=== PATIENT | female | born 1960 | race Caucasian/White ===

== ENCOUNTER → 2019-03-07 | Outpatient (CLI) | payer SELFPAY ==
[2019-03-07 10:18] LABS: Microalbumin:Creatinine Ratio 9.7 mg/g CRE (<30 mg/g CRE)
[2019-03-07 10:20] LABS: ALB/GLOB Ratio 1.1 RATIO (0.9-2.4); AST(SGOT) 32 U/L (15-37); Alanine Aminotransfer ALT/SGPT 43 U/L (13-56); Albumin, Serum 3.7 g/dL (3.2-5.0); Alkaline Phosphatase 65 U/L (45-117); Anion Gap 8 (5-15); BUN 16 mg/dL (7-18); BUN/Creat Ratio 21.4 RATIO (10-20); Calcium,Total 9.1 mg/dL (8.5-10.1); Chloride 104 mmol/L (98-107); Cholesterol 129 mg/dL (200); Creatinine, Serum 0.75 mg/dL (0.55-1.02); EST Glomerular Filtration Rate 84 mL/min (>60); Est Glom Filt Rate - Afr Amer 102 mL/min (>60); Globulin 3.5 g/dL (2.2-4.2); Glucose 135 mg/dL (74-106); High Density Lipoprotein 55 mg/dL; Potassium 4.2 mmol/L (3.5-5.1); Protein, Total 7.2 g/dL (6.4-8.2); Sodium Level 141 mmol/L (136-145); Triglycerides 96 mg/dL; Very Low Density Lipoprotein 19 mg/dL (5-40)
[2019-03-07 10:25] LABS: Hemoglobin A1c 8.9 % (4.2-6.3)
== END | disposition home or self-care (01) ==
PROVIDERS: Family Provider Family Medicine; PCP Family Medicine; Referring Provider Family Medicine; Visit Provider Family Medicine
DX: E11.65 Type 2 diabetes mellitus with hyperglycemia (principal); I10 Essential (primary) hypertension; E78.5 Hyperlipidemia, unspecified
CPT/HCPCS: 36415; 80053; 80061; 82043; 82570; 83036

== ENCOUNTER → 2019-06-06 | Outpatient (CLI) | payer OTHER, SELFPAY ==
[2014-02-25 10:27] VITALS: BMI 35.1
[2019-06-06 09:48] LABS: Hemoglobin A1c 7.9 % (4.2-6.3)
[2019-06-06 09:55] LABS: Microalbumin,Random Urine 9.5 mg/L (NO RANGE EST.); Microalbumin:Creatinine Ratio 11.6 mg/g CRE (<30 mg/g CRE)
[2019-06-06 10:01] LABS: ALB/GLOB Ratio 1.2 RATIO (0.9-2.4); AST(SGOT) 32 U/L (15-37); Alanine Aminotransfer ALT/SGPT 45 U/L (13-56); Albumin, Serum 3.7 g/dL (3.2-5.0); Alkaline Phosphatase 61 U/L (45-117); Anion Gap 8 (5-15); BUN 16 mg/dL (7-18); BUN/Creat Ratio 22.3 RATIO (10-20); Calcium,Total 8.9 mg/dL (8.5-10.1); Chloride 106 mmol/L (98-107); Cholesterol 141 mg/dL (200); Creatinine, Serum 0.72 mg/dL (0.55-1.02); EST Glomerular Filtration Rate 88 mL/min (>60); Est Glom Filt Rate - Afr Amer 107 mL/min (>60); Globulin 3.2 g/dL (2.2-4.2); Glucose 146 mg/dL (74-106); High Density Lipoprotein 52 mg/dL; Potassium 4.2 mmol/L (3.5-5.1); Protein, Total 6.9 g/dL (6.4-8.2); Sodium Level 142 mmol/L (136-145); Triglycerides 105 mg/dL; Very Low Density Lipoprotein 21 mg/dL (5-40)
== END | disposition home or self-care (01) ==
PROVIDERS: Family Provider Family Medicine; PCP Family Medicine; Referring Provider Family Medicine; Visit Provider Family Medicine
DX: E78.5 Hyperlipidemia, unspecified (principal); E11.65 Type 2 diabetes mellitus with hyperglycemia; I10 Essential (primary) hypertension; Z79.4 Long term (current) use of insulin
CPT/HCPCS: 36415; 80053; 80061; 82043; 82570; 83036

== ENCOUNTER → 2019-12-12 08:13 | Outpatient (CLI) | payer OTHER, SELFPAY ==
[2019-12-12 09:59] LABS: Microalbumin,Random Urine 9.2 mg/L (NO RANGE EST.); Microalbumin:Creatinine Ratio 10.7 mg/g CRE (<30 mg/g CRE)
[2019-12-12 10:04] LABS: Anion Gap 6 (5-15); BUN 17 mg/dL (7-18); BUN/Creat Ratio 22.8 RATIO (10-20); Chloride 104 mmol/L (98-107); Cholesterol 125 mg/dL (200); Creatinine, Serum 0.75 mg/dL (0.55-1.02); EST Glomerular Filtration Rate 84 mL/min (>60); Est Glom Filt Rate - Afr Amer 101 mL/min (>60); Glucose 111 mg/dL (74-106); High Density Lipoprotein 54 mg/dL; Potassium 3.8 mmol/L (3.5-5.1); Sodium Level 138 mmol/L (136-145); Triglycerides 115 mg/dL; Very Low Density Lipoprotein 23 mg/dL (5-40)
[2019-12-12 10:07] LABS: Hemoglobin A1c 7.4 % (4.2-6.3)
== END ==
PROVIDERS: PCP Family Medicine; Referring Provider Family Medicine; Visit Provider Family Medicine
DX: E78.5 Hyperlipidemia, unspecified (principal); E11.9 Type 2 diabetes mellitus without complications; Z79.899 Other long term (current) drug therapy
CPT/HCPCS: 36415; 80048; 80061; 82043; 82570; 83036

== ENCOUNTER → 2020-05-19 08:15 | Outpatient (CLI) | payer OTHER, SELFPAY ==
[2014-02-25 10:27] VITALS: BMI 35.1
[2020-05-19 09:23] LABS: ALB/GLOB Ratio 1.1 RATIO (0.9-2.4); AST(SGOT) 30 U/L (15-37); Alanine Aminotransfer ALT/SGPT 41 U/L (13-56); Albumin, Serum 3.7 g/dL (3.2-5.0); Alkaline Phosphatase 57 U/L (45-117); Anion Gap 7 (5-15); BUN 17 mg/dL (7-18); BUN/Creat Ratio 24.4 RATIO (10-20); Calcium,Total 8.8 mg/dL (8.5-10.1); Chloride 104 mmol/L (98-107); Cholesterol 134 mg/dL (200); EST Glomerular Filtration Rate 91 mL/min (>60); Est Glom Filt Rate - Afr Amer 110 mL/min (>60); Globulin 3.3 g/dL (2.2-4.2); Glucose 109 mg/dL (74-106); High Density Lipoprotein 54 mg/dL; Potassium 3.8 mmol/L (3.5-5.1); Sodium Level 140 mmol/L (136-145); Triglycerides 100 mg/dL; Very Low Density Lipoprotein 20 mg/dL (5-40)
[2020-05-19 09:46] LABS: Hemoglobin A1c 7.2 % (3.8-5.6)
== END ==
PROVIDERS: PCP Family Medicine; Referring Provider Family Medicine; Visit Provider Family Medicine
DX: E11.9 Type 2 diabetes mellitus without complications (principal); I10 Essential (primary) hypertension; Z79.4 Long term (current) use of insulin; E78.5 Hyperlipidemia, unspecified
CPT/HCPCS: 36415; 80053; 80061; 83036

== ENCOUNTER 2021-10-05 15:08 | Inpatient (IN) | payer MEDICARE, OTHER, SELFPAY ==
[2021-10-05] VITALS (17 sets, daily range): BP systolic 127–150; BP diastolic 60–78; PULSE 58–70; RESP 16–38; TEMP 36.2–37.3; O2SAT 83–97; BMI 35.4; BMI 35.7
[2021-10-05 16:04] LABS: Absolute Lymphocyte Count 0.58 X10^3/uL (0.83-4.51); Basophil# 0.01 X10^3/uL; Basophil% 0.1 % (0-1); Hematocrit 33.5 % (37-47); Hemoglobin 11.5 g/dL (12.0-15.0); Lymphocyte # 0.58 X10^3/ul (0.83-4.51); Lymphocyte % 7.2 % (19-41); Mean Corp Hgb Conc 34.3 g/dL (32-36); Mean Corpuscular Hgb 28.7 pg (27.0-32.0); Mean Corpuscular Volume 83.5 fL (81-99); Mean Platelet Vol. 10.9 fl (6.2-12.0); Monocyte# 0.37 X10^3/uL; Monocyte% 4.6 % (0-10); NRBC Flagged by Analyzer 0 % (0-5); Neutrophil # 7.04 X10^3/uL (2.7-7.7); Neutrophil % 87.5 % (47-70); POSITIVE DIFFERENTIAL YES; Platelet Count 196 K/mm3 (150-450); RBC Distribution Width CV 13.9 % (11.6-14.6); RBC Distribution Width SD 42.8 fl (35.1-43.9); Red Blood Count 4.01 M/mm3 (4.2-5.4); White Blood Count 8.1 K/mm3 (4.4-11.0)
[2021-10-05 16:05] LABS: Differential Indicated SCAN CRITERIA MET
--- NOTE | 2021-10-05 16:06 | RAD_ITS ---
STUDY: X-RAY CHEST REASON FOR EXAM: Female, 61 years old. SOB TECHNIQUE: Single frontal view of the chest. COMPARISON: None. FINDINGS: Moderate bilateral interstitial infiltrates. There is no demonstrated pleural abnormality. Normal size heart. Normal mediastinum and kendal. Normal visualized pulmonary arteries. Normal visualized aortic arch and descending thoracic aorta. Normal visualized thoracic spine. Normal visualized ribs, clavicles, and shoulders. There is no demonstrated abnormality of the visualized soft tissue structures of the upper abdomen. RAD/Chest 1 View (Portable) IMPRESSION: Moderate bilateral interstitial infiltrates Electronically Signed: Vadim Monroe MD at 16:33 EST , Service support ,
--- NOTE | 2021-10-05 16:06 | ED.VIS.DYS ---
HPI History of Present Illness Chief Complaint: Shortness of Breath Detail of Chief Complaint: Cough shortness of breath with weakness x1 week Informant: patient and family Narrative Narrative: Patient presents to the emergency department with complaint of shortness of breath. Patient was seen by primary care physician's office and noted to have an oxygen saturation in the low 80s. Patient's had a cough and at times bringing up some green to brown sputum. She complains of exertional dyspnea. She has had some body aches and sore throat. She denies Covid exposures. She has not had the Covid vaccine. She denies chest pain. No history of CHF or COPD. PFSH PFS Home Medications atorvastatin 20 mg PO QHS 02/17/14 [History Last Taken Unknown] buspirone 15 mg PO DAILY 02/17/14 [History Last Taken Unknown] fluoxetine 40 mg PO DAILY 02/17/14 [History Last Taken Unknown] glimepiride 4 mg PO DAILY 02/17/14 [History Last Taken Unknown] lisinopril 20 mg PO DAILY 02/17/14 [History Last Taken Unknown] metformin 1,000 mg PO BIDCM 02/17/14 [History Last Taken Unknown] zolpidem 5 mg PO QHS PRN PRN 02/17/14 [History Last Taken Unknown] hydrocodone-acetaminophen 1 tab PO Q4H PRN PRN #20 tablet 02/25/14 [Rx Last Taken Unknown] Allergy/AdvReac Type Severity Reaction Status Date / Time simvastatin [From Zocor] AdvReac Other Verified 10/05/21 15:12 Social History Smoking Status: Former smoker ROS [facility] ED Constitutional Constitutional ED: Reports systems reviewed and no addt'l complaints, except as documented; Denies body ache(s), change in weight or chills Eyes Eyes: Denies acute decrease in peripheral vision, change in vision, double vision or loss of vision ENT ENT ED: Reports none and sore throat; Denies ear pain, lip swelling, loss taste/smell, neck pain or otalgia Cardiovascular Cardiovascular: Reports none; Denies abdominal pain, chest pain with activity, leg edema, lightheadedness, palpitations, rapid heart rate or syncope Respiratory/Chest Respiratory/Chest: Reports none, cough and dyspnea; Denies change in mental status, dry cough, hemoptysis, shortness of breath at rest or shortness of breath with exertion Gastrointestinal Gastrointestinal: Reports none; Denies abdominal pain, change in stool character, diarrhea, hematemesis, hematochezia, melena, rectal bleeding or vomiting Genitourinary Genitourinary ED: Reports none; Denies abdominal discomfort, anuria, dysuria, genital pain or polyuria Musculoskeletal Musculoskeletal: Reports none and myalgias; Denies arthralgias, back pain, difficulty walking, extremity pain or muscle weakness Integumentary Reports none; Denies abscess or rash Neurologic Neurologic: Reports none, headache(s) and weakness; Denies abnormal gait, confusion, focal weakness, frequent falls, loss of vision, numbness, paresthesias, radicular pain or vertigo Psychiatric Psychiatric: Reports systems reviewed and no addt'l complaints, except as documented and none; Denies behavioral changes, confusion, difficulty concentrating, hallucinations, suicidal ideation, tactile hallucinations or visual hallucinations Endocrine Endocrinology: Denies none, cold intolerance, excessive sweating, fatigue or heat intolerance Hematologic/Lymphatic Hematologic/Lymphatic: Reports none; Denies anemia, easy bleeding or easy bruising Allergic/Immunologic Allergic/Immunologic ED: Denies as per HPI, none, lip swelling, mouth swelling, throat swelling, tongue swelling or hives EXAM Physical Exam Const Vital Signs: 10/05/21 15:10 10/05/21 16:22 10/05/21 16:41 Temperature 97.9 F Temperature Source Temporal Pulse Rate 69 Respiratory Rate 18 16 Blood Pressure 150/65 H Blood Pressure Mean 93 Pulse Ox 83 90 95 Oxygen Delivery Method Room Air Nasal Cannula Nasal Cannula Oxygen Flow Rate (L/min) 4 6 Positive well nourished and well developed General Appearance ED: well developed and NAD HEENT Reports TM's clear and moist mucous membranes normocephalic and atraumatic; Negative for trauma or tenderness Tympanic Membrane ED: Yes TM's clear Eyes PERRL and EOMs intact bilaterally General Eye ED: Negative for pale conjunctiva or scleral icterus Neck no lymphadenopathy, supple and no JVD General: Negative for tenderness Chest Wall inspection of chest normal and palpation of chest normal Chest: Negative for tenderness Resp normal respiratory effort and clear to auscultation bilaterally Effort and Inspection: Negative for respiratory distress or pain with movement Auscultation: Negative for rhonchi, wheezes or diminished lung sounds Cardio regular rate, regular rhythm, S1 normal heart sound, S2 normal heart sound and no murmurs Peripheral Pulses: pulses 2+ throughout GI normal to inspection, nondistended, normoactive bowel sounds, soft to palpation, non-tender, non-distended and no masses Back/Spine no CVA tenderness and no thoracic nor lumbar tenderness Extremity normal to inspection Extremity Narrative: +1 edema both lower extremities that is symmetric. General Extremety ED: Yes edema General Extremity: edema Neuro oriented x3, CN's II-XII intact bilaterally, no sensory deficits noted and gait normal Sensorium / Orientation: awake, alert, oriented to person, oriented to place and oriented to time Motor Exam: strength 5/5 throughout and strength abnormal Psych mental status grossly normal Skin no rashes or lesions noted and no wounds MDM MDM MDM Narrative Medical decision making narrative: IV line established on arrival. Patient placed on 6 L nasal cannula O2. Patient was given Decadron 6 mg p.o. Patient positive for Covid and CTA was negative for PE. Patient drops her O2 sat 85% on 6 L with just minimal movement. Patient will be admitted and I will discuss case with hospitalist. Lab Data Attestation: I reviewed the patient's lab results. Labs: Laboratory Results - last 24 hr 10/05/21 10/05/21 10/05/21 15:40 15:40 15:40 WBC 8.1 RBC 4.01 L Hgb 11.5 L Hct 33.5 L MCV 83.5 MCH 28.7 MCHC 34.3 RDW Std Deviation 42.8 RDW Coeff of Yohan 13.9 Plt Count 196 MPV 10.9 Immature Gran % (Auto) 0.600 Neut % (Auto) 87.5 H Lymph % (Auto) 7.2 L [place] % (Auto) 4.6 Eos % (Auto) 0.0 Baso % (Auto) 0.1 Absolute Neuts (auto) 7.0 Absolute Lymphs (auto) 0.58 L Nucleated RBC % 0 Differential Comment SCANNED D-Dimer Quant (PE/DVT) 2.28 H* Sodium 125 L Potassium 3.7 Chloride 93 L Carbon Dioxide 23.0 Anion Gap 9 BUN 23 H Creatinine 0.65 Estim Creat Clear Calc 79.71 Est GFR (MDRD) Af Amer 119 Est GFR (MDRD) Non-Af 98 BUN/Creatinine Ratio 35.5 H Glucose 108 H Calcium 8.7 B-Natriuretic Peptide 10/05/21 15:40 WBC RBC Hgb Hct MCV MCH MCHC RDW Std Deviation RDW Coeff of Yohan Plt Count MPV Immature Gran % (Auto) Neut % (Auto) Lymph % (Auto) [place] % (Auto) Eos % (Auto) Baso % (Auto) Absolute Neuts (auto) Absolute Lymphs (auto) Nucleated RBC % Differential Comment D-Dimer Quant (PE/DVT) Sodium Potassium Chloride Carbon Dioxide Anion Gap BUN Creatinine Estim Creat Clear Calc Est GFR (MDRD) Af Amer Est GFR (MDRD) Non-Af BUN/Creatinine Ratio Glucose Calcium B-Natriuretic Peptide 176.8 H Radiography Diagnostic Testing: Clinical Impression(s) from Imaging Studies Chest X-Ray 10/05/21 16:06 IMPRESSION: Moderate bilateral interstitial infiltrates Electronically Signed: Vadim Monroe MD at 16:33 EST , Service support , Chest CTA 10/05/21 16:45 IMPRESSION: Multifocal groundglass opacities typical for covid 19, other etiologies not excluded. Electronically Signed: Vadim Monroe MD at 18:15 EST , Service support , 1 view chest x-ray obtained interpreted by myself as bilateral infiltrates. Radiology in agreement. Discharge Plan Triage Chief Complaint: Shortness of Breath ED Provider: Erasmo Doss Dx/Rx/DC Orders Clinical Impression: COVID-19, Hypoxemia Prescriptions: No Action buspirone 5 MG tablet 15 mg PO DAILY RF: 0 atorvastatin 20 MG tablet 20 mg PO QHS RF: 0 lisinopril 20 MG tablet 20 mg PO DAILY RF: 0 metformin 1,000 MG tablet 1,000 mg PO BIDCM RF: 0 glimepiride 4 MG tablet 4 mg PO DAILY RF: 0 zolpidem 5 MG tablet 5 mg PO QHS PRN PRN (Reason: Sleep) RF: 0 fluoxetine 20 MG capsule 40 mg PO DAILY RF: 0 hydrocodone-acetaminophen 1 TABLET tablet 1 tab PO Q4H PRN PRN (Reason: Pain) Qty: 20 RF: 0 Primary Care Provider: Sun Morrell Referrals: Sun Morrell MD [Primary Care Provider] - Disposition Disposition: Acute Care Hospital [facility]
[2021-10-05 16:12] LABS: Anion Gap 9 (5-15); BUN 23 mg/dL (7-18); BUN/Creat Ratio 35.5 RATIO (10-20); Calcium,Total 8.7 mg/dL (8.5-10.1); Chloride 93 mmol/L (98-107); Creatinine, Serum 0.65 mg/dL (0.55-1.02); EST Glomerular Filtration Rate 98 mL/min (>60); Est Glom Filt Rate - Afr Amer 119 mL/min (>60); Estimated Creatinine Clearance 79.71 ml/min; Glucose 108 mg/dL (74-106); Potassium 3.7 mmol/L (3.5-5.1); Sodium Level 125 mmol/L (136-145)
[2021-10-05 16:18] LABS: Differential Comment SCANNED
[2021-10-05 16:32] LABS: D-Dimer Quantitative (DVT/PE) 2.28 FEU/ug/m (0.27-0.49)
[2021-10-05 16:41] LABS: BNP,B-Type NATRIURETIC PEPTIDE 176.8 pg/mL (0-100)
--- NOTE | 2021-10-05 16:45 | CT_ITS ---
STUDY: CTA CHEST REASON FOR EXAM: Female, 61 years old. dyspnea, elevated d-dimer RADIATION DOSAGE (If Supplied By Facility): CTDIvol = ( 11.46 ) mGy, DLP = ( 475.86 ) mGycm TECHNIQUE: The examination was performed with the intravenous administration of IV 100mL Isovue-370. Post-processing of the angiographic images was performed, with multiplanar reformation and 3D reconstruction. Individualized dose optimization techniques were used for this CT. COMPARISON: Chest x-ray 10/05/2021 FINDINGS: Normal enhancement of the main pulmonary artery and right and left pulmonary arteries. Normal enhancement of the bilateral peripheral pulmonary arteries. There is no demonstrated pulmonary embolism. Normal thoracic aorta and visualized great vessels. There is no demonstrated aortic dissection. Calcific coronary artery disease. Normal mediastinum. Normal hilar regions. Normal visualized trachea and bronchi. Multifocal bilateral groundglass opacities. Normal pulmonary parenchyma. Normal pleura. Normal chest wall structures. Normal osseous structures. Normal visualized upper abdomen. CT/CTA Chest W/WO Contrast IMPRESSION: Multifocal groundglass opacities typical for covid 19, other etiologies not excluded. Electronically Signed: Vadim Monroe MD at 18:15 EST , Service support ,
[2021-10-05] MEDS: dexAMETHasone 4 MG Tablet 6 MG PO (17:03)
--- NOTE | 2021-10-05 18:20 | PCM.HP.STD ---
HPI - General General Date of Admission: 10/05/21 Date of Service: 10/05/21 Chief Complaint: COVID type symptoms, hypoxic at PCP visit, referred to ED. HPI Narrative The patient is a 61 y/o F w/ PMHx: Obesity, HTN, HLD, Anxiety and Depression, Diabetes mellitus type II who presents to the [facility] ED on 10/05/21 with history of onset COVID type symptoms with body aches, sore throat, mild frontal headaches, nausea, emesis, diarrhea without abdominal cramping, low-grade fevers with no significant chills associated as well as cough and dyspnea progressively worsening x 1 week prompting PCP evaluation on day of presentation with oxygenation noted to be in the 80s prompting referral to the ED for evaluation. Patient denies having been vaccinated against COVID and does note that she has some ill contacts but is unsure if this is Covid. Work-up in the ED included T 97.9, heart rate 69, BP 150/65, respiratory rate 18, initially 83% on room air eventually requiring 6 L nasal cannula to achieve 95% oxygenation, CBC with WC 8.1, hemoglobin 11.5, platelet 196 with lymphopenia, D-dimer 2.28, BMP with sodium 125, chloride 93, BUN/creatinine 23/0.65, glucose 108, BNP 176.8, rapid Covid antigen positive, chest x-ray with moderate bilateral interstitial infiltrates consistent with Covid pneumonia, follow-up CTPA with multifocal ground-glass opacities bilaterally consistent with Covid pneumonia, blood culture x2 pending per ED. In the ED patient ministered Decadron 6 mg p.o. x1. [facility] Medical History (Updated 10/05/21 @ 18:[address] Irina Odonnell MD) Anxiety and depression HLD (hyperlipidemia) HTN (hypertension) Obesity Home Medications atorvastatin 20 mg PO QHS 02/17/14 [History Last Taken Unknown] buspirone 15 mg PO DAILY 02/17/14 [History Last Taken Unknown] fluoxetine 40 mg PO DAILY 02/17/14 [History Last Taken Unknown] glimepiride 4 mg PO DAILY 02/17/14 [History Last Taken Unknown] lisinopril 20 mg PO DAILY 02/17/14 [History Last Taken Unknown] metformin 1,000 mg PO BIDCM 02/17/14 [History Last Taken Unknown] zolpidem 5 mg PO QHS PRN PRN 02/17/14 [History Last Taken Unknown] hydrocodone-acetaminophen 1 tab PO Q4H PRN PRN #20 tablet 02/25/14 [Rx Last Taken Unknown] Allergy/AdvReac Type Severity Reaction Status Date / Time simvastatin [From Zocor] AdvReac Other Verified 10/05/21 15:12 Family History (Updated 10/05/21 @ 18:[address] Irina Odonnell MD) Mother Cancer Hx lymphoma. Father CAD (coronary artery disease) Hx CABG, ASHD Heart disease Surgical History (Updated 10/05/21 @ 18:[address] Irina Odonnell MD) History of hysterectomy Hx of breast surgery S/P dilation and curettage Social History (Updated 10/05/21 @ 18:[address] Irina Odonnell MD) household members: none Smoking Status: Never smoker alcohol intake: never substance use type: does not use ROS ROS Narrative Admission Review of Systems: CONSTITUTIONAL: No weight loss, + fever, weakness or fatigue. HEENT: + Headache. Eyes: No visual loss, blurred vision, double vision or yellow sclerae. Ears, Nose, Throat: No hearing loss, sneezing. SKIN: No rash or itching, lesions, wounds. CARDIOVASCULAR: No chest pain, chest pressure or chest discomfort, palpitations, edema, orthopnea, syncopal events. RESPIRATORY: + shortness of breath, cough, No marked sputum, wheezing, hemoptysis. GASTROINTESTINAL: + anorexia, nausea, vomiting, diarrhea, No abdominal pain, melena, BRBPR. GENITOURINARY: No dysuria, frequency, urgency or retention. NEUROLOGICAL: + headache, No dizziness, syncope, paralysis, ataxia, numbness or tingling in the extremities, focal weakness, change in bowel or bladder control, seizure. MUSCULOSKELETAL: + muscle, back pain, joint pain or stiffness. HEMATOLOGIC: No anemia, bleeding or bruising. LYMPHATICS: No enlarged nodes. No history of splenectomy. PSYCHIATRIC: + history of depression or anxiety. ENDOCRINOLOGIC: No reports of sweating, cold or heat intolerance. No polyuria or polydipsia. ALLERGIES: No history of asthma, hives, eczema or rhinitis. Vital Signs Vital Signs Vital Signs: 10/05/21 15:10 10/05/21 16:22 10/05/21 16:41 Temperature 97.9 F Temperature Source Temporal Pulse Rate 69 Respiratory Rate 18 16 Blood Pressure 150/65 H Blood Pressure Mean 93 Pulse Ox 83 90 95 Oxygen Delivery Method Room Air Nasal Cannula Nasal Cannula Oxygen Flow Rate (L/min) 4 6 Weight Weight: 212 lb 15.465 oz Body Mass Index (BMI) 35.4 Physical Exam Narrative Physical Examination: General: Awake, alert, oriented x 3 and cooperative, seated upright in the ED bed, fatigued and ill-appearing, mildly increased respiratory rate. Skin: Normal color, normal turgor, no icterus, no cyanosis. HEENT: AT/NC, EOMI, PERRLA, moderately dry MM, no carotid bruits or JVD noted. Lungs: Diffusely diminished, greater bases, increased respiratory rate, in the room patient less than 88% on 6 L nasal cannula, increased, evidence of respiratory compromise with increased work of breathing and some accessory muscle usage, no rales, ronchi or wheezing. Heart: Regular rate with regular rhythm; no gallop, rub audible. Abdomen: Soft, obese, no obvious TTP, appears mildly distended, distant hyperactive bowel sounds, no obvious HSM. Extremities: No cyanosis, clubbing, or edema. Neurological: Patient awake, alert, oriented as noted, cognitive function intact; pupils equally reactive to light and accommodation, cranial nerves II-XII grossly normal, moving all 4 extremities, no focal deficits, strength severely globally decreased secondary to acute presentation. Psychiatric: Affect appears fatigued, ill-appearing, respiratory compromise evident with increased work of breathing, mild accessory muscle usage increased respiratory rate, no acute evidence of depressive or anxiety feelings. Results Lab / Micro Data Result Diagrams: 10/05/21 15:40 10/05/21 15:40 Labs: Laboratory Results - last 24 hr 10/05/21 15:40: WBC 8.1, RBC 4.01 L, Hgb 11.5 L, Hct 33.5 L, MCV 83.5, MCH 28.7, MCHC 34.3, RDW Std Deviation 42.8, RDW Coeff of Yohan 13.9, Plt Count 196, MPV 10.9, Immature Gran % (Auto) 0.600, Neut % (Auto) 87.5 H, Lymph % (Auto) 7.2 L, [place] % (Auto) 4.6, Eos % (Auto) 0.0, Baso % (Auto) 0.1, Absolute Neuts (auto) 7.0, Absolute Lymphs (auto) 0.58 L, Nucleated RBC % 0, Differential Comment SCANNED 10/05/21 15:40: Sodium 125 L, Potassium 3.7, Chloride 93 L, Carbon Dioxide 23.0, Anion Gap 9, BUN 23 H, Creatinine 0.65, Estim Creat Clear Calc 79.71, Est GFR (MDRD) Af Amer 119, Est GFR (MDRD) Non-Af 98, BUN/Creatinine Ratio 35.5 H, Glucose 108 H, Calcium 8.7 10/05/21 15:40: D-Dimer Quant (PE/DVT) 2.28 H* 10/05/21 15:40: B-Natriuretic Peptide 176.8 H Micro: Microbiology 10/05/21 15:55 Nasal Secretion SARS-CoV-2 Antigen (Rapid) - Final SARS-CoV-2 (COVID 19) Radiology Impression Chest X-Ray 10/05/21 16:06 IMPRESSION: Moderate bilateral interstitial infiltrates Electronically Signed: Vadim Monroe MD at 16:33 EST , Service support , Chest CTA 10/05/21 16:45 IMPRESSION: Multifocal groundglass opacities typical for covid 19, other etiologies not excluded. Electronically Signed: Vadim Monroe MD at 18:15 EST , Service support , Assessment & Plan Assessment/Plan (1) Acute respiratory failure with hypoxia: (2) Pneumonia due to COVID-19 virus: PLAN: The patient is a 61 y/o F w/ PMHx: Obesity, HTN, HLD, Anxiety and Depression, Diabetes mellitus type II who presents to the [facility] ED on 10/05/21 with history of onset COVID type symptoms with body aches, sore throat, mild frontal headaches, nausea, emesis, diarrhea without abdominal cramping, low-grade fevers with no significant chills associated as well as cough and dyspnea progressively worsening x 1 week prompting PCP evaluation on day of presentation with oxygenation noted to be in the 80s prompting referral to the ED for evaluation. #1. Acute Hypoxic Respiratory Failure secondary to Acute Bilateral Pneumonia secondary to Acute Viral Syndrome, COVID-19: Will admit to the MS telemetry, maintain on COVID precautions, will maintain on oxygen with wean as tolerated to room air, PRN albuterol, HOB, IS parameters w/ pending sputum cultures, respiratory viral panel and urine antigens, will obtain procalcitonin, CRP, CPK, Ferritin, LDH and additionally hepatic profile is not obtained in the ED, continue supportive care including q 2 hour turning including prone given no prone bed availability and judicious hydration, closely monitor for worsening status for ARDS and multiorgan failure, will initiate and continue IV decadron x 10 doses, given presentation will also initiate IV remdesivir but defer to discretion of Infectious disease. If respiratory status worsens and patient requires airvo or BIPAP transition will initiate barcitinib regimen additionally with ID involvement. #2. Hyponatremia, acute, hypovolemic: Secondary to likely GI losses, initial sodium 125, will judiciously hydrate given acute presentation as noted #1, repeat CMP in AM. #3. Diabetes mellitus type II: Hold oral home regimen, ADA diet, accu checks w/ ISS. #4. Hypertension: Continue home regimen including lisinopril with hold parameters as needed, PRN hydralazine. #5. Hyperlipidemia: Continue home statin regimen. #6. Anxiety and depression: We will continue patient home BuSpar as well as fluoxetine regimen with low threshold to hold BuSpar if patient sedate. We will hold patient nightly as needed zolpidem given acute presentation #1. #7. Obesity: Weight loss and lifestyle changes encouraged. #8. DVT prophylaxis: SCDs, Lovenox. #9. CODE status: Patient ANETTE is her brother Matt and living will is currently in place. Discussed CODE status at length including difference between FULL code, DNR-CCA and DNR-CC status. Following discussions about the differences in these status, requested Full Code status, amenable to airvo, BIPAP, remdesivir and varsity neb if appropriate. Advanced Care Planning Face to Face Time: 16 minutes. Charges/Coding Visit Charges Inpatient E&M: 13206 Init Hosp L3 Procedures Hospitalists Procedures: 46153 Advncd Care Plan 30 Min
[2021-10-05 18:59] LABS: AST(SGOT) 64 U/L (15-37); Alanine Aminotransfer ALT/SGPT 46 U/L (13-56); Albumin, Serum 2.6 g/dL (3.2-5.0); Alkaline Phosphatase 64 U/L (45-117); Bilirubin, Direct 0.71 mg/dL (0.00-0.30); Ferritin 247 ng/mL (8-252); Globulin 4.2 g/dL (2.2-4.2); LDH 423 U/L (84-246); Protein, Total 6.8 g/dL (6.4-8.2)
[2021-10-05 19:04] LABS: Procalcitonin 0.32 ng/mL (0.00-0.09)
[2021-10-05] MEDS: 0.9% Saline Lock 10 ML Syringe IV (21:30)
[2021-10-05] MEDS: Enoxaparin 30 MG/0.3 ML Syringe SC (21:34)
[2021-10-05 21:41] LABS: Bedside Glucose 147 mg/dL (70-110)
[2021-10-05] MEDS: 0.9% Normal Saline 1,000 ML 100 ML IV (21:53)
[2021-10-06] VITALS (15 sets, daily range): BP systolic 105–137; BP diastolic 59–71; PULSE 57–84; RESP 26–36; TEMP 36.3–36.7; O2SAT 90–97
--- NOTE | 2021-10-06 00:34 | PCS.PANDOC ---
PANDEMIC DOCUMENTATION INITIATED: Date: 10/05/2021 Time: 2199
[2021-10-06] MEDS: Insulin Lispro 100 UNIT/ML INSULN.PEN SC ×4 (06:23→22:20)
[2021-10-06 07:03] LABS: Absolute Lymphocyte Count 0.62 X10^3/uL (0.83-4.51); Absolute Neutrophil Count 6.3 X10^3/uL (2.0-7.7); Basophil# 0.01 X10^3/uL; Basophil% 0.1 % (0-1); Hematocrit 34.6 % (37-47); Hemoglobin 11.7 g/dL (12.0-15.0); Lymphocyte # 0.62 X10^3/ul (0.83-4.51); Lymphocyte % 8.4 % (19-41); Mean Corp Hgb Conc 33.8 g/dL (32-36); Mean Corpuscular Hgb 28.3 pg (27.0-32.0); Mean Corpuscular Volume 83.6 fL (81-99); Mean Platelet Vol. 11.1 fl (6.2-12.0); Monocyte# 0.43 X10^3/uL; Monocyte% 5.8 % (0-10); NRBC Flagged by Analyzer 0 % (0-5); Neutrophil # 6.26 X10^3/uL (2.7-7.7); POSITIVE MORPHOLOGY YES; Platelet Count 206 K/mm3 (150-450); RBC Distribution Width CV 13.7 % (11.6-14.6); RBC Distribution Width SD 42.1 fl (35.1-43.9); Red Blood Count 4.14 M/mm3 (4.2-5.4); White Blood Count 7.4 K/mm3 (4.4-11.0)
[2021-10-06 07:05] LABS: Differential Indicated SCAN CRITERIA MET
[2021-10-06 07:10] LABS: Bedside Glucose 192 mg/dL (70-110)
[2021-10-06 07:48] LABS: ALB/GLOB Ratio 0.6 RATIO (0.9-2.4); AST(SGOT) 52 U/L (15-37); Alanine Aminotransfer ALT/SGPT 43 U/L (13-56); Albumin, Serum 2.3 g/dL (3.2-5.0); Alkaline Phosphatase 60 U/L (45-117); Anion Gap 10 (5-15); BUN 18 mg/dL (7-18); BUN/Creat Ratio 27.3 RATIO (10-20); Calcium,Total 8.4 mg/dL (8.5-10.1); Chloride 95 mmol/L (98-107); Creatinine, Serum 0.66 mg/dL (0.55-1.02); EST Glomerular Filtration Rate 96 mL/min (>60); Est Glom Filt Rate - Afr Amer 116 mL/min (>60); Estimated Creatinine Clearance 78.51 ml/min; Globulin 4.1 g/dL (2.2-4.2); Glucose 185 mg/dL (74-106); Potassium 3.7 mmol/L (3.5-5.1); Protein, Total 6.4 g/dL (6.4-8.2); Sodium Level 128 mmol/L (136-145)
[2021-10-06] MEDS: busPIRone 15 MG TABLET PO (09:39)
[2021-10-06] MEDS: Enoxaparin 30 MG/0.3 ML Syringe SC ×2 (09:44→22:12)
[2021-10-06] MEDS: Lisinopril 40 MG Tablet PO (09:44)
[2021-10-06] MEDS: dexAMETHasone 10 MG/ML Vial 6 MG IV (10:44)
[2021-10-06] MEDS: 0.9% Saline Lock 10 ML Syringe IV (10:44)
[2021-10-06 12:10] LABS: Bedside Glucose 183 mg/dL (70-110)
--- NOTE | 2021-10-06 12:20 | CASEMGMT ---
CAMILO RANDHAWA Assessment: Face to Face with pt for initial transition planning/care coordination assessment. CAMILO RANDHAWA introduced self and role at [facility], pt voices understanding and consents to assessment. Pt is A/O x4 and answers all questions appropriately at this time. Pt sitting up in chair with O2 on in no distress. Care providers, pharmacy, and demographics verified/updated. Admitting Dx: COVID PNA, resp failure PCP:[facility] Specialists: Pt denies. [facility] Insurance: uninsured COVID Prescription Benefit: no LW/HPOA: Pt states she has a LW/DPOA and her DPOA is her nephew Thai Sarah. She is aware this is not on file at [facility] and she may bring in to be scanned into the chart. LNOK: Luisana Sarah, sister; Thai Sarah, newphew Living Arrangements: Pt lives in an apt within a house of her nephew's. Pt has own living quarters. She reports she is I in ADL's and denies concerns at home. 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 DME/HHC/SNF: Pt denies having any DME, hx of HHC or SNF stays. Pt states she was first tested at [facility] for COVID. She has family who can provide her with groceries and supplies while in quarantine. Pt has no preference on DME for O2 if needed. She states she does not have electricity or generators at this time. She will call her nephew to see if they can get a generator should she need O2 upon dc. Pt states no concerns with going home at time of dc. Pt states no further concerns/needs. CM to follow. Advised pt to ask CM if any further question/concerns/needs arise, voices understanding. Pt Goal: Home Plan: Home
[2021-10-06 17:20] LABS: Bedside Glucose 240 mg/dL (70-110)
--- NOTE | 2021-10-06 19:35 | PN.HOSP_ITS ---
Subjective Subjective Patient was seen and examined today, she is currently on nasal cannula oxygen at the time of my examination at 9 L/min. I asked the patient about her CODE STATUS, she stated that if she needed to be on a ventilator she would be in favor of being placed on a ventilator. Patient has not been vaccinated. She has been ill for approximately 5 days. Objective Data Objective Data Vital Signs: Vital Signs Temp Pulse Resp BP Pulse Ox 98.1 F 63 28 H 137/64 H 97 10/06/21 13:48 10/06/21 19:20 10/06/21 13:48 10/06/21 13:48 10/06/21 19:20 Oxygen Flow Rate (L/min) 7 Oxygen Delivery Method High Flow Weight: 96.2 kg Body Mass Index (BMI) 35.7 Intake & Output: Intake and Output for Last 24 Hours 10/04/21 10/05/21 10/06/21 23:59 23:59 23:59 Intake Total 259.59 / 259.59 996.66 / 996.66 Output Total 1000 / 1000 Balance -740.41 / -740.41 996.66 / 996.66 Lab / Micro Data Result Diagrams: 10/06/21 06:25 10/06/21 06:25 Labs: Laboratory Results - last 24 hr 10/05/21 21:21: POC Glucose 147 H 10/06/21 06:06: POC Glucose 192 H 10/06/21 06:25: WBC 7.4, RBC 4.14 L, Hgb 11.7 L, Hct 34.6 L, MCV 83.6, MCH 28.3, MCHC 33.8, RDW Std Deviation 42.1, RDW Coeff of Yohan 13.7, Plt Count 206, MPV 11.1, Immature Gran % (Auto) 0.700, Neut % (Auto) 85.0 H, Lymph % (Auto) 8.4 L, [place] % (Auto) 5.8, Eos % (Auto) 0.0, Baso % (Auto) 0.1, Absolute Neuts (auto) 6.3, Absolute Lymphs (auto) 0.62 L, Nucleated RBC % 0 10/06/21 06:25: Sodium 128 L, Potassium 3.7, Chloride 95 L, Carbon Dioxide 23.0, Anion Gap 10, BUN 18, Creatinine 0.66, Estim Creat Clear Calc 78.51, Est GFR (MDRD) Af Amer 116, Est GFR (MDRD) Non-Af 96, BUN/Creatinine Ratio 27.3 H, Glucose 185 H, Calcium 8.4 L, Total Bilirubin 1.60 H, AST 52 H, ALT 43, Alkaline Phosphatase 60, Total Protein 6.4, Albumin 2.3 L, Globulin 4.1, Albumin/Globulin Ratio 0.6 L 10/06/21 12:01: POC Glucose 183 H 10/06/21 16:57: POC Glucose 240 H Micro: Microbiology 10/05/21 23:00 Urine, Random Legionella Antigen - Final 10/05/21 23:00 Urine, Random Streptococcus pneumoniae Antigen (M - Final 10/05/21 15:55 Nasal Secretion SARS-CoV-2 Antigen (Rapid) - Final SARS-CoV-2 (COVID 19) Physical Exam Const alert, oriented x3, no apparent distress and healthy appearing General Appearance: cooperative, well kempt and well developed Orientation / Consciousness: awake, oriented to person, oriented to place and oriented to time HEENT normocephalic and moist oral mucous membranes Eyes PERRL, EOMs intact bilaterally and conjunctivae normal Neck nuchal rigidity, supple, no JVD and thyroid normal General: trachea midline Resp normal respiratory effort, no retractions, no use of accessory muscles and clear to auscultation bilaterally Auscultation: Negative for rales, rhonchi or wheezes Cardio regular rate, regular rhythm, S1 normal heart sound, S2 normal heart sound, no murmurs, no rub and no gallops GI normal to inspection, nondistended, normoactive bowel sounds, soft to palpation, non-tender and non-distended Extremity no clubbing, cyanosis or edema Skin no rashes or lesions noted General Skin Exam: no breakdown Neuro oriented x3, CN's II-XII intact bilaterally, no focal motor deficits and no sensory deficits noted Sensorium / Orientation: awake and alert Speech: speech normal Psych thought process normal and affect normal Assessment & Plan Assessment/Plan (1) Pneumonia due to COVID-19 virus: PLAN: 1. COVID-19 pneumonia-patient is currently on dexamethasone and remdesivir #2 acute hypoxic respiratory failure secondary to #1-pulse ox will be monitored #3 essential hypertension-patient is currently on lisinopril Charges/Coding Visit Charges Inpatient E&M: 19063 Subs Hosp L2
[2021-10-06 22:11] LABS: Bedside Glucose 219 mg/dL (70-110)
[2021-10-06] MEDS: Atorvastatin Calcium 20 MG Tablet PO (22:12)
[2021-10-06] MEDS: MELATONIN 3 MG TABLET PO (22:13)
[2021-10-07] VITALS (17 sets, daily range): BP systolic 117–134; BP diastolic 55–71; PULSE 53–94; RESP 20–63; TEMP 36.3–36.6; O2SAT 80–98
[2021-10-07] MEDS: Insulin Lispro 100 UNIT/ML INSULN.PEN SC ×4 (06:30→23:22)
[2021-10-07 06:46] LABS: Bedside Glucose 162 mg/dL (70-110)
[2021-10-07] MEDS: Acetaminophen 325 MG Tablet 650 MG PO (10:38)
[2021-10-07] MEDS: 0.9% Saline Lock 10 ML Syringe IV ×2 (10:40→23:26)
[2021-10-07] MEDS: Lisinopril 40 MG Tablet PO (10:40)
[2021-10-07] MEDS: Enoxaparin 30 MG/0.3 ML Syringe SC ×2 (10:40→23:23)
[2021-10-07] MEDS: dexAMETHasone 10 MG/ML Vial 6 MG IV (10:40)
[2021-10-07] MEDS: busPIRone 15 MG TABLET PO (10:40)
[2021-10-07 12:15] LABS: Bedside Glucose 209 mg/dL (70-110)
--- NOTE | 2021-10-07 17:00 | CASEMGMT ---
CAMILO RANDHAWA NOTE: Pt states has access to generator if needed for O2. Juan BARBOURN CAMILO CM
[2021-10-07 17:50] LABS: Bedside Glucose 298 mg/dL (70-110)
--- NOTE | 2021-10-07 19:33 | PCM.PN.HOSP ---
Subjective Subjective Patient was seen and examined today, currently she is on nasal cannula oxygen, her oxygenation overall seems to be improving. Objective Data Objective Data Vital Signs: Vital Signs Temp Pulse Resp BP Pulse Ox 97.9 F 80 20 H 133/61 H 96 10/07/21 14:30 10/07/21 17:00 10/07/21 17:00 10/07/21 14:30 10/07/21 17:00 Oxygen Flow Rate (L/min) 6 Oxygen Delivery Method Nasal Cannula Weight: 95.8 kg Body Mass Index (BMI) 35.7 Intake & Output: Intake and Output for Last 24 Hours 10/05/21 10/06/21 10/07/21 23:59 23:59 23:59 Intake Total 259.59 / 259.59 1122.66 / 1122.66 550 / 550 Output Total 1000 / 1000 Balance -740.41 / -740.41 1122.66 / 1122.66 550 / 550 Lab / Micro Data Result Diagrams: 10/06/21 06:25 10/06/21 06:25 Labs: Laboratory Results - last 24 hr 10/06/21 21:50: POC Glucose 219 H 10/07/21 06:28: POC Glucose 162 H 10/07/21 11:47: POC Glucose 209 H 10/07/21 17:35: POC Glucose 298 H Micro: Microbiology 10/05/21 23:00 Urine, Random Legionella Antigen - Final 10/05/21 23:00 Urine, Random Streptococcus pneumoniae Antigen (M - Final 10/05/21 15:55 Nasal Secretion SARS-CoV-2 Antigen (Rapid) - Final SARS-CoV-2 (COVID 19) Physical Exam Const alert, oriented x3, no apparent distress and healthy appearing General Appearance: cooperative, well kempt and well developed Orientation / Consciousness: awake, oriented to person, oriented to place and oriented to time HEENT normocephalic and moist oral mucous membranes Eyes PERRL, EOMs intact bilaterally and conjunctivae normal Neck nuchal rigidity, supple, no JVD and thyroid normal General: trachea midline Resp normal respiratory effort, no retractions, no use of accessory muscles and clear to auscultation bilaterally Auscultation: Negative for rales, rhonchi or wheezes Cardio regular rate, regular rhythm, S1 normal heart sound, S2 normal heart sound, no murmurs, no rub and no gallops GI normal to inspection, nondistended, normoactive bowel sounds, soft to palpation, non-tender and non-distended Extremity no clubbing, cyanosis or edema Skin no rashes or lesions noted General Skin Exam: no breakdown Neuro oriented x3, CN's II-XII intact bilaterally, no focal motor deficits and no sensory deficits noted Sensorium / Orientation: awake and alert Speech: speech normal Psych thought process normal and affect normal Assessment & Plan Assessment/Plan (1) Pneumonia due to COVID-19 virus: PLAN: 1. COVID-19 pneumonia-patient is currently on dexamethasone and remdesivir #2 acute hypoxic respiratory failure secondary to #1-pulse ox will be monitored #3 essential hypertension-patient is currently on lisinopril #4 hyperlipidemia-patient is on atorvastatin Charges/Coding Visit Charges Inpatient E&M: 36920 Subs Hosp L2
[2021-10-07] MEDS: Atorvastatin Calcium 20 MG Tablet PO (23:33)
[2021-10-08] VITALS (12 sets, daily range): BP systolic 137–155; BP diastolic 55–79; PULSE 53–71; RESP 18–20; TEMP 36.1–36.8; O2SAT 86–96
[2021-10-08 00:06] LABS: Bedside Glucose 204 mg/dL (70-110)
[2021-10-08] MEDS: Acetaminophen 325 MG Tablet 650 MG PO (04:17)
[2021-10-08] MEDS: Albuterol 2.5 MG/3 ML VIAL.NEB. INHALATION (05:31)
[2021-10-08 07:06] LABS: Bedside Glucose 129 mg/dL (70-110)
[2021-10-08] MEDS: dexAMETHasone 10 MG/ML Vial 6 MG IV (09:33)
[2021-10-08] MEDS: busPIRone 15 MG TABLET PO (09:33)
[2021-10-08] MEDS: 0.9% Saline Lock 10 ML Syringe IV ×2 (09:33→21:17)
[2021-10-08] MEDS: Enoxaparin 30 MG/0.3 ML Syringe SC ×2 (09:33→21:17)
[2021-10-08] MEDS: Lisinopril 40 MG Tablet PO (09:33)
[2021-10-08] MEDS: Insulin Lispro 100 UNIT/ML INSULN.PEN SC ×3 (11:37→21:17)
[2021-10-08 12:00] LABS: Bedside Glucose 259 mg/dL (70-110)
--- NOTE | 2021-10-08 15:50 | PN.HOSP_ITS ---
Subjective Subjective Patient was seen and examined today, she is currently on oxygen at 3 L/min via nasal cannula. Patient has no insurance for payment of oxygen at home. Patient will be through with her remdesivir dosage Sunday night. It is possible that oxygen could be set up for the patient on Sunday if she remains medically stab le. Objective Data Objective Data Vital Signs: Vital Signs Temp Pulse Resp BP Pulse Ox 98.2 F 71 18 137/55 H 92 10/08/21 14:13 10/08/21 14:13 10/08/21 14:13 10/08/21 14:13 10/08/21 14:13 Oxygen Flow Rate (L/min) [ 6 AMBULATING with Oxygen #1] Oxygen Flow Rate (L/min) [At 4 REST with Oxygen] Oxygen Flow Rate (L/min) 3 Oxygen Delivery Method Nasal Cannula Weight: 95.2 kg Body Mass Index (BMI) 35.7 Intake & Output: Intake and Output for Last 24 Hours 10/06/21 10/07/21 10/08/21 23:59 23:59 23:59 Intake Total 1122.66 / 1122.66 850 / 850 850 / 850 Balance 1122.66 / 1122.66 850 / 850 850 / 850 Lab / Micro Data Result Diagrams: 10/06/21 06:25 10/06/21 06:25 Labs: Laboratory Results - last 24 hr 10/07/21 17:35: POC Glucose 298 H 10/07/21 23:20: POC Glucose 204 H 10/08/21 06:36: POC Glucose 129 H 10/08/21 11:36: POC Glucose 259 H Micro: Microbiology 10/05/21 18:00 Blood Culture (Wb) - Anticubital Right Blood Culture - Preliminary No growth in 48 hours. 10/05/21 15:40 Blood Culture (Wb) - Right Hand Blood Culture - Preliminary No growth in 48 hours. 10/05/21 23:00 Urine, Random Legionella Antigen - Final 10/05/21 23:00 Urine, Random Streptococcus pneumoniae Antigen (M - Final 10/05/21 15:55 Nasal Secretion SARS-CoV-2 Antigen (Rapid) - Final SARS-CoV-2 (COVID 19) Physical Exam Narrative alert, oriented x3, no apparent distress and healthy appearing General Appearance: cooperative, well kempt and well developed Orientation / Consciousness: awake, oriented to person, oriented to place and oriented to time HEENT normocephalic and moist oral mucous membranes Eyes PERRL, EOMs intact bilaterally and conjunctivae normal Neck nuchal rigidity, supple, no JVD and thyroid normal General: trachea midline Resp normal respiratory effort, no retractions, no use of accessory muscles and clear to auscultation bilaterally Auscultation: Negative for rales, rhonchi or wheezes Cardio regular rate, regular rhythm, S1 normal heart sound, S2 normal heart sound, no murmurs, no rub and no gallops GI normal to inspection, nondistended, normoactive bowel sounds, soft to palpation, non-tender and non-distended Extremity no clubbing, cyanosis or edema Skin no rashes or lesions noted General Skin Exam: no breakdown Neuro oriented x3, CN's II-XII intact bilaterally, no focal motor deficits and no sensory deficits noted Sensorium / Orientation: awake and alert Speech: speech normal Psych thought process normal and affect normal Assessment & Plan Assessment/Plan (1) Pneumonia due to COVID-19 virus: PLAN: 1. COVID-19 pneumonia-patient is currently on dexamethasone and remdesivir #2 acute hypoxic respiratory failure secondary to #1-pulse ox will be monitored #3 essential hypertension-patient is currently on lisinopril #4 hyperlipidemia-patient is on atorvastatin Charges/Coding Visit Charges Inpatient E&M: 95031 Subs Hosp L2
[2021-10-08 16:35] LABS: Bedside Glucose 355 mg/dL (70-110)
[2021-10-08] MEDS: Atorvastatin Calcium 20 MG Tablet PO (21:17)
[2021-10-08 22:31] LABS: Bedside Glucose 299 mg/dL (70-110)
[2021-10-09] VITALS (10 sets, daily range): BP systolic 148–180; BP diastolic 65–90; PULSE 51–67; RESP 18–20; TEMP 36.6; O2SAT 80–99
[2021-10-09] MEDS: Albuterol 2.5 MG/3 ML VIAL.NEB. INHALATION (05:55)
[2021-10-09 06:21] LABS: Bedside Glucose 127 mg/dL (70-110)
[2021-10-09] MEDS: Lisinopril 40 MG Tablet PO (10:16)
[2021-10-09] MEDS: Enoxaparin 30 MG/0.3 ML Syringe SC ×2 (10:16→22:23)
[2021-10-09] MEDS: busPIRone 15 MG TABLET PO (10:16)
[2021-10-09] MEDS: dexAMETHasone 10 MG/ML Vial 6 MG IV (10:16)
[2021-10-09] MEDS: Insulin Lispro 100 UNIT/ML INSULN.PEN SC ×3 (12:38→22:50)
[2021-10-09 13:01] LABS: Bedside Glucose 258 mg/dL (70-110)
[2021-10-09 17:35] LABS: Bedside Glucose 369 mg/dL (70-110)
--- NOTE | 2021-10-09 18:10 | PCM.PN.HOSP ---
Subjective Subjective Patient was seen and examined today, she does not appear to be in any distress at rest as far as her respiratory status is concerned. At the time of my dictation, patient is on 3 L of nasal cannula oxygen. She will need set up for home oxygen I feel tomorrow, she will finish her remdesivir tonight. Objective Data Objective Data Vital Signs: Vital Signs Temp Pulse Resp BP Pulse Ox 98 F 51 L 18 150/65 H 98 10/09/21 15:51 10/09/21 17:00 10/09/21 17:00 10/09/21 15:51 10/09/21 17:00 Oxygen Flow Rate (L/min) [ 3 AMBULATING with Oxygen #2] Oxygen Flow Rate (L/min) [ 3 AMBULATING with Oxygen #1] Oxygen Flow Rate (L/min) [At 3 REST with Oxygen] Oxygen Flow Rate (L/min) 3 Oxygen Delivery Method Nasal Cannula Weight: 95.4 kg Body Mass Index (BMI) 35.7 Intake & Output: Intake and Output for Last 24 Hours 10/07/21 10/08/21 10/09/21 23:59 23:59 23:59 Intake Total 850 / 850 1100 / 1100 400 / 400 Balance 850 / 850 1100 / 1100 400 / 400 Lab / Micro Data Result Diagrams: 10/06/21 06:25 10/06/21 06:25 Labs: Laboratory Results - last 24 hr 10/08/21 21:10: POC Glucose 299 H 10/09/21 06:03: POC Glucose 127 H 10/09/21 12:36: POC Glucose 258 H 10/09/21 17:06: POC Glucose 369 H Micro: Microbiology 10/05/21 18:00 Blood Culture (Wb) - Anticubital Right Blood Culture - Preliminary No growth in 48 hours. 10/05/21 15:40 Blood Culture (Wb) - Right Hand Blood Culture - Preliminary No growth in 48 hours. 10/05/21 23:00 Urine, Random Legionella Antigen - Final 10/05/21 23:00 Urine, Random Streptococcus pneumoniae Antigen (M - Final 10/05/21 15:55 Nasal Secretion SARS-CoV-2 Antigen (Rapid) - Final SARS-CoV-2 (COVID 19) Physical Exam Const alert, oriented x3, no apparent distress and healthy appearing General Appearance: cooperative, well kempt and well developed Orientation / Consciousness: awake, oriented to person, oriented to place and oriented to time HEENT normocephalic, head/scalp atraumatic and moist oral mucous membranes Head and Scalp: normocephalic Eyes PERRL, EOMs intact bilaterally and conjunctivae normal Neck nuchal rigidity, supple, no JVD, thyroid normal and no carotid bruits General: trachea midline Resp normal respiratory effort, no retractions, no use of accessory muscles and clear to auscultation bilaterally Auscultation: Negative for rales, rhonchi or wheezes Cardio regular rate, regular rhythm, S1 normal heart sound, S2 normal heart sound, no murmurs, no rub and no gallops GI normal to inspection, nondistended, normoactive bowel sounds, soft to palpation, non-tender and non-distended Extremity normal to inspection and no clubbing, cyanosis or edema Skin no rashes or lesions noted General Skin Exam: no breakdown Neuro oriented x3, CN's II-XII intact bilaterally, no focal motor deficits and no sensory deficits noted Sensorium / Orientation: awake and alert Speech: speech normal Psych thought process normal and affect normal Assessment & Plan Assessment/Plan (1) Pneumonia due to COVID-19 virus: PLAN: 1. COVID-19 pneumonia-patient is currently on dexamethasone and remdesivir, she will finish her remdesivir course tonight #2 acute hypoxic respiratory failure secondary to #1-pulse ox will be monitored, currently she is on nasal cannula oxygen, I expect that tomorrow she will be able to go home-she may need supplemental oxygen and this could be arranged. #3 essential hypertension-patient is currently on lisinopril #4 hyperlipidemia-patient is on atorvastatin Charges/Coding Visit Charges Inpatient E&M: 87299 Subs Hosp L2
[2021-10-09] MEDS: Atorvastatin Calcium 20 MG Tablet PO (22:24)
[2021-10-09] MEDS: Acetaminophen 325 MG Tablet 650 MG PO (22:24)
[2021-10-09] MEDS: guaiFENesin 10 ML UDC (200MG/10ML) 20 ML PO (22:25)
[2021-10-09] MEDS: MELATONIN 3 MG TABLET PO (22:40)
[2021-10-10] VITALS (7 sets, daily range): BP systolic 142–160; BP diastolic 63–80; PULSE 48–64; RESP 18–20; TEMP 36.4–36.7; O2SAT 88–98
[2021-10-10 00:26] LABS: Bedside Glucose 307 mg/dL (70-110)
[2021-10-10] MEDS: Acetaminophen 325 MG Tablet 650 MG PO (02:34)
[2021-10-10 07:50] LABS: Bedside Glucose 186 mg/dL (70-110)
[2021-10-10 09:07] LABS: Absolute Lymphocyte Count 1.06 X10^3/uL (0.83-4.51); Absolute Neutrophil Count 5.6 X10^3/uL (2.0-7.7); Basophil# 0.01 X10^3/uL; Basophil% 0.1 % (0-1); Eosinophil# 0.11 X10^3/uL; Eosinophils% 1.5 % (0-5); Hematocrit 33.7 % (37-47); Hemoglobin 10.8 g/dL (12.0-15.0); Lymphocyte # 1.06 X10^3/ul (0.83-4.51); Lymphocyte % 14.4 % (19-41); Mean Corpuscular Hgb 27.5 pg (27.0-32.0); Mean Corpuscular Volume 85.8 fL (81-99); Mean Platelet Vol. 10.4 fl (6.2-12.0); Monocyte# 0.45 X10^3/uL; Monocyte% 6.1 % (0-10); NRBC Flagged by Analyzer 0 % (0-5); Neutrophil # 5.59 X10^3/uL (2.7-7.7); Neutrophil % 75.9 % (47-70); Platelet Count 277 K/mm3 (150-450); RBC Distribution Width CV 13.8 % (11.6-14.6); RBC Distribution Width SD 43.7 fl (35.1-43.9); Red Blood Count 3.93 M/mm3 (4.2-5.4); White Blood Count 7.4 K/mm3 (4.4-11.0)
[2021-10-10] MEDS: Lisinopril 40 MG Tablet PO (09:09)
[2021-10-10] MEDS: Enoxaparin 30 MG/0.3 ML Syringe SC (09:09)
[2021-10-10] MEDS: busPIRone 15 MG TABLET PO (09:10)
[2021-10-10] MEDS: 0.9% Saline Lock 10 ML Syringe IV (09:10)
[2021-10-10] MEDS: dexAMETHasone 10 MG/ML Vial 6 MG IV (09:10)
[2021-10-10] MEDS: Insulin Lispro 100 UNIT/ML INSULN.PEN SC ×2 (09:11→12:17)
[2021-10-10 09:38] LABS: ALB/GLOB Ratio 0.5 RATIO (0.9-2.4); AST(SGOT) 30 U/L (15-37); Alanine Aminotransfer ALT/SGPT 51 U/L (13-56); Albumin, Serum 2.2 g/dL (3.2-5.0); Alkaline Phosphatase 74 U/L (45-117); Anion Gap 5 (5-15); BUN 20 mg/dL (7-18); BUN/Creat Ratio 32.5 RATIO (10-20); Calcium,Total 8.7 mg/dL (8.5-10.1); Chloride 104 mmol/L (98-107); Creatinine, Serum 0.62 mg/dL (0.55-1.02); EST Glomerular Filtration Rate 104 mL/min (>60); Est Glom Filt Rate - Afr Amer 126 mL/min (>60); Estimated Creatinine Clearance 83.57 ml/min; Globulin 4.1 g/dL (2.2-4.2); Glucose 248 mg/dL (74-106); Protein, Total 6.3 g/dL (6.4-8.2); Sodium Level 136 mmol/L (136-145)
--- NOTE | 2021-10-10 10:00 | CPS ---
Still unable to do Respiratory Panel, no medium has arrived to our Laboratory. Informed air motor repairer.
[2021-10-10 12:15] LABS: Bedside Glucose 316 mg/dL (70-110)
--- NOTE | 2021-10-10 15:27 | PCM.DC ---
Discharge Instructions Diet Discharge Diet: Low fat / Low cholesterol and Carb Control Diet Activity Discharge Activity: Return to Normal Activity Dressing / Incision Call your doctor if you observe: Fever of 101 or Higher, Shortness of breath, Dizziness, Fainting spells, Swelling in the ankles, Chest pain and Increased palpitations (irregular heartbeat) Follow Up Care Test Results: Test results from this visit will be discussed in further detail at your follow-up appointment, if applicable. Discharge Plan Admission Admit Date/Time: 10/05/21 18:30 Attending Provider: Haider Shaikh Primary Care Provider: Sun Morrell Instructions Additional Instructions / Restrictions: Please be very cognizant of your blood sugars while on steroids as they can make them uncontrollable. Please follow closely carb controlled diet and monitor blood sugars daily. Please follow a 20-day quarantine from the time of symptom onset Discharge Orders/Prescriptions Prescriptions: New dexamethasone 2 mg tablet 6 mg PO DAILY 5 Days Qty: 15 RF: 0 Continued atorvastatin 20 MG tablet 20 mg PO DAILY RF: 0 lisinopril 20 MG tablet 40 mg PO DAILY RF: 0 metformin 1,000 MG tablet 1,000 mg PO BIDCM RF: 0 zolpidem 5 MG tablet 5 mg PO QHS PRN PRN (Reason: Sleep) RF: 0 sertraline 100 mg tablet 100 mg PO DAILY RF: 0 hydrochlorothiazide 12.5 mg capsule 12.5 mg PO DAILY RF: 0 ascorbic acid (vitamin C) [Vitamin C] 1,000 mg Tablet 1,000 mg PO BID RF: 0 zinc 50 mg Tablet 50 mg PO BID RF: 0 cholecalciferol (vitamin D3) [Vitamin D3] 125 mcg (5,000 unit) Tablet 125 mcg PO DAILY RF: 0 Referrals / Follow Up: Sun Morrell MD [Primary Care Provider] - Within 1 Week Disposition Disposition (needs filled in before D/C Order can be placed): Home, Self Care
--- NOTE | 2021-10-10 16:47 | DS.PCM_ITS ---
Providers Date of Admission: 10/05/21 Primary Care Physician: Dr. Sun Morrell MD Reason For Visit: COVID PNA, RESP FAILURE Diagnosis Discharge Diagnosis (1) Pneumonia due to COVID-19 virus: Status: Acute Code(s): U07.1 - COVID-19; J12.82 - Pneumonia due to coronavirus disease 2019 Medications at Discharge Home Medications atorvastatin 20 mg PO DAILY 02/17/14 lisinopril 40 mg PO DAILY 02/17/14 metformin 1,000 mg PO BIDCM 02/17/14 zolpidem 5 mg PO QHS PRN PRN 02/17/14 hydrochlorothiazide 12.5 mg PO DAILY 10/05/21 sertraline 100 mg PO DAILY 10/05/21 ascorbic acid (vitamin C) [Vitamin C] 1,000 mg PO BID 10/06/21 cholecalciferol (vitamin D3) [Vitamin D3] 125 mcg PO DAILY 10/06/21 zinc 50 mg PO BID 10/06/21 dexamethasone 6 mg PO DAILY 5 Days #15 tab 10/10/21 Hospital Course Operations None Procedures None Summary of Care Provided Minutes Spent on Discharge: 38 Hospital Course: Per HPI: The patient is a 61 y/o F w/ PMHx: Obesity, HTN, HLD, Anxiety and Depression, Diabetes mellitus type II who presents to the [facility] ED on 10/05/21 with history of onset COVID type symptoms with body aches, sore throat, mild frontal headaches, nausea, emesis, diarrhea without abdominal cramping, low- grade fevers with no significant chills associated as well as cough and dyspnea progressively worsening x 1 week prompting PCP evaluation on day of presentation with oxygenation noted to be in the 80s prompting referral to the ED for evaluation. Patient denies having been vaccinated against COVID and does note that she has some ill contacts but is unsure if this is Covid. Work-up in the ED included T 97.9, heart rate 69, BP 150/65, respiratory rate 18, initially 83% on room air eventually requiring 6 L nasal cannula to achieve 95% oxygenation, CBC with WC 8.1, hemoglobin 11.5, platelet 196 with lymphopenia, D-dimer 2.28, BMP with sodium 125, chloride 93, BUN/creatinine 23/0.65, glucose 108, BNP 176.8, rapid Covid antigen positive, chest x-ray with moderate bilateral interstitial infiltrates consistent with Covid pneumonia, follow-up CTPA with multifocal ground-glass opacities bilaterally consistent with Covid pneumonia, blood culture x2 pending per ED. In the ED patient ministered Decadron 6 mg p.o. x1. Hospital Course: 1. Acute hypoxic respiratory failure secondary to COVID-19 pneumonia? 61-year-old female presents to the hospital with Covid-like symptoms. Symptoms started about a week prior to presentation. She was started on on remdesivir and Decadron and has had improvement in her oxygen requirements. She is currently down to 3 L nasal cannula at rest and needed 3 to 5 L nasal cannula to maintain oxygen saturations with ambulation. I discussed the possibility for discharge today with her and her daughter and they both expressed understanding of the risk and benefits of going home and they would like to go home today if possible. She has completed remdesivir but will need about 5 more days of Decadron on discharge. She is a diabetic so I did discuss with her that she needs to monitor her blood sugars closely and if they start to become uncontrolled that she should discontinue her Decadron. I do recommend that she follow-up with her PCP in 3 to 5 days. 2. Hypertension, hyperlipidemia, type 2 diabetes, anxiety, depression all chronic medical conditions which complicate her care. Her home medications were continued where appropriate. Physical Exam Const alert, oriented x3 and no apparent distress General Appearance: cooperative HEENT normocephalic and moist oral mucous membranes Eyes PERRL, EOMs intact bilaterally and conjunctivae normal Neck supple and no JVD Resp normal respiratory effort, no retractions and no use of accessory muscles Auscultation: diminished lung sounds; Negative for crackles, rales, rhonchi or wheezes Cardio regular rate, regular rhythm, S1 normal heart sound, S2 normal heart sound and no murmurs GI soft to palpation, non-tender and non-distended; Negative for hepatosplenomegaly Extremity no clubbing, cyanosis or edema Skin no rashes or lesions noted Neuro no focal motor deficits and no sensory deficits noted Psych affect normal Appearance: appropriate Weight / BMI Weight Weight: 210 lb 15.718 oz Body Mass Index (BMI) 35.7 ABG / Lab / Microbiology Data Result Diagrams: 10/10/21 08:52 10/10/21 08:52 Laboratory: Laboratory Results - last 24 hr 10/09/21 17:06: POC Glucose 369 H 10/09/21 22:49: POC Glucose 307 H 10/10/21 07:43: POC Glucose 186 H 10/10/21 08:52: WBC 7.4, RBC 3.93 L, Hgb 10.8 L, Hct 33.7 L, MCV 85.8, MCH 27.5, MCHC 32.0 D, RDW Std Deviation 43.7, RDW Coeff of Yohan 13.8, Plt Count 277, MPV 10.4, Immature Gran % (Auto) 2.000 H, Neut % (Auto) 75.9 H, Lymph % (Auto) 14.4 L, [place] % (Auto) 6.1, Eos % (Auto) 1.5, Baso % (Auto) 0.1, Absolute Neuts (auto) 5.6, Absolute Lymphs (auto) 1.06, Nucleated RBC % 0 10/10/21 08:52: Sodium 136, Potassium 4.0, Chloride 104, Carbon Dioxide 27.0, Anion Gap 5, BUN 20 H, Creatinine 0.62, Estim Creat Clear Calc 83.57, Est GFR (MDRD) Af Amer 126, Est GFR (MDRD) Non-Af 104, BUN/Creatinine Ratio 32.5 H, Glucose 248 H, Calcium 8.7, Total Bilirubin 0.90, AST 30, ALT 51, Alkaline Phosphatase 74, Total Protein 6.3 L, Albumin 2.2 L, Globulin 4.1, Albumin/Globulin Ratio 0.5 L 10/10/21 11:38: POC Glucose 316 H Microbiology: Microbiology 10/05/21 18:00 Blood Culture (Wb) - Anticubital Right Blood Culture - Preliminary No growth in 48 hours. 10/05/21 15:40 Blood Culture (Wb) - Right Hand Blood Culture - Preliminary No growth in 48 hours. 10/05/21 23:00 Urine, Random Legionella Antigen - Final 10/05/21 23:00 Urine, Random Streptococcus pneumoniae Antigen (M - Final 10/05/21 15:55 Nasal Secretion SARS-CoV-2 Antigen (Rapid) - Final SARS-CoV-2 (COVID 19) D/C Instructions Discharge Diet: Low fat / Low cholesterol and Carb Control Diet Call your doctor if you observe: Fever of 101 or Higher, Shortness of breath, Dizziness, Fainting spells, Swelling in the ankles, Chest pain and Increased palpitations (irregular heartbeat) Meaningful Use Info Meaningful Use Diagnoses (Choose all that apply): None applicable Discharge Plan Admission Admit Date/Time: 10/05/21 18:30 Attending Provider: Haider Shaikh Primary Care Provider: Sun Morrell Instructions Additional Instructions / Restrictions: Please be very cognizant of your blood sugars while on steroids as they can make them uncontrollable. Please follow closely carb controlled diet and monitor blood sugars daily. Please follow a 20-day quarantine from the time of symptom onset Discharge Orders/Prescriptions Prescriptions: New dexamethasone 2 mg tablet 6 mg PO DAILY 5 Days Qty: 15 RF: 0 Continued atorvastatin 20 MG tablet 20 mg PO DAILY RF: 0 lisinopril 20 MG tablet 40 mg PO DAILY RF: 0 metformin 1,000 MG tablet 1,000 mg PO BIDCM RF: 0 zolpidem 5 MG tablet 5 mg PO QHS PRN PRN (Reason: Sleep) RF: 0 sertraline 100 mg tablet 100 mg PO DAILY RF: 0 hydrochlorothiazide 12.5 mg capsule 12.5 mg PO DAILY RF: 0 ascorbic acid (vitamin C) [Vitamin C] 1,000 mg Tablet 1,000 mg PO BID RF: 0 zinc 50 mg Tablet 50 mg PO BID RF: 0 cholecalciferol (vitamin D3) [Vitamin D3] 125 mcg (5,000 unit) Tablet 125 mcg PO DAILY RF: 0 Referrals / Follow Up: Sun Morrell MD [Primary Care Provider] - Within 1 Week Disposition Disposition (needs filled in before D/C Order can be placed): Home, Self Care Charges/Coding Visit Charges Inpatient E&M: 22341 Disch Hosp
== END 2021-10-10 17:15 | disposition home or self-care (01) | DRG 177 ==
LOC: ED 18:21 → MS3 19:49
PROVIDERS: Internal Medicine; Admitting Provider Family Medicine; Emergency Provider Emergency Medicine; PCP Internal Medicine; Visit Provider Family Medicine
DX: U07.1 COVID-19 (principal); J12.82 Pneumonia due to coronavirus disease 2019; J96.01 Acute respiratory failure with hypoxia; E87.1 Hypo-osmolality and hyponatremia; I10 Essential (primary) hypertension; E86.1 Hypovolemia; E11.9 Type 2 diabetes mellitus without complications; E66.9 Obesity, unspecified; E78.5 Hyperlipidemia, unspecified; F32.A Depression, unspecified; F41.9 Anxiety disorder, unspecified; Z68.35 Body mass index [BMI] 35.0-35.9, adult; Z79.84 Long term (current) use of oral hypoglycemic drugs; Z79.899 Other long term (current) drug therapy; Z87.891 Personal history of nicotine dependence
CPT/HCPCS: 36415; 71045; 71275; 80048; 80053; 80076; 82728; 82962; 83615; 83880; 84145; 85025; 85379; 86140; 87040; 87426; 87449; 94640; 94760; 94762; 99251; 99283; J7030; J7040; J7050; Q9967; A4216; G0463; J0248

== ENCOUNTER 2022-03-29 15:37 | Emergency (ER) | payer OTHER, SELFPAY ==
[2022-03-29 15:38] VITALS: BP 141/53; PULSE 76; RESP 14; TEMP 36.7; O2SAT 94; BMI 36.0
--- NOTE | 2022-03-29 16:20 | CT_ITS ---
We are attempting to reach an attending provider to discuss findings. An addendum with communication details will be sent when the communication is complete. STUDY: CT BRAIN WITHOUT CONTRAST REASON FOR EXAM: Female, 61 years old. head injury RADIATION DOSAGE (If Supplied By Facility): CTDIvol = ( 44.99 ) mGy, DLP = ( 796.11 ) mGycm TECHNIQUE: Transaxial CT imaging of the brain was performed without administration of intravenous contrast material. Individualized dose optimization techniques were used for this CT. COMPARISON: No relevant priors. FINDINGS: Normal soft tissue structures. Normal calvarium. Normal size ventricles and extra-axial spaces for the patient''s age. Normal white matter tracts of the cerebral hemispheres. Normal basal ganglia and thalami. Normal brainstem. Normal cerebellum. There are linear hyperintensities within sulci of the right temporal lobe, the left frontal lobe and both parietal lobes consistent with subarachnoid hemorrhage. No mass effect or There are no findings of an acute ischemic infarction. Normal visualized paranasal sinuses. CT/Brain/Head without Contrast IMPRESSION: Acute subarachnoid hemorrhage as described above. Electronically Signed: Wilfredo Puckett MD at 16:57 EDT ,
--- NOTE | 2022-03-29 16:21 | EX.ED.DYSGE1 ---
HPI History of Present Illness Chief Complaint: Head Injury Informant: patient Narrative Narrative: 61-year-old female states that she unhinged her horse from the post and the horse started to get away from her. She sustained a fall and does not really remember what happened. Possible loss of consciousness. She notes laceration to left side of her head. She also notes pain to her mid humerus on the left. Unknown last tetanus. She is not on a blood thinner. [facility] Medical History Anxiety and depression HLD (hyperlipidemia) HTN (hypertension) Obesity Home Medications atorvastatin 20 mg tablet 20 mg PO DAILY cholesterol 02/17/14 [History Last Taken 10/05/21] lisinopril 20 mg tablet 40 mg PO DAILY hypertension 02/17/14 [History Last Taken 10/05/21] metformin 1,000 mg tablet 1,000 mg PO BID diabetes 02/17/14 [History Last Taken 10/05/21] hydrochlorothiazide 12.5 mg capsule 12.5 mg PO DAILY hypertension 10/05/21 [History Last Taken 10/05/21] aspirin 81 mg tablet,delayed release 81 mg PO DAILY 03/29/22 [History Last Taken Unknown] insulin NPH-regular 70-30 U-100 insulin 100 unit/mL subcutaneous pen 36 unit subcut BID 03/29/22 [History Last Taken Unknown] trazodone 50 mg tablet 50 mg PO DAILY 03/29/22 [History Last Taken Unknown] Allergy/AdvReac Type Severity Reaction Status Date / Time simvastatin [From Zocor] AdvReac Other Verified 03/29/22 15:38 Family History Mother Cancer Hx lymphoma. Father CAD (coronary artery disease) Hx CABG, ASHD Heart disease Surgical History History of hysterectomy Hx of breast surgery S/P dilation and curettage Social History household members: none Smoking Status: Never smoker alcohol intake: never substance use type: does not use ROS ROS ED Constitutional Constitutional ED: Denies chills, fever(s) or weight loss Eyes Eyes: Denies change in vision or diplopia ENT ENT ED: Denies ear pain, rhinorrhea or sore throat Cardiovascular Cardiovascular: Denies chest pain, orthopnea, palpitations or racing heartbeat Respiratory/Chest Respiratory/Chest: Denies cough, dyspnea or orthopnea Gastrointestinal Gastrointestinal: Denies abdominal pain, diarrhea, nausea or vomiting Genitourinary Genitourinary ED: Denies dysuria, hematuria or urinary frequency Musculoskeletal Musculoskeletal: Reports other Details: Left arm pain ; Denies arthralgias or myalgias Integumentary Denies abscess or rash Neurologic Neurologic: Reports headache(s); Denies weakness Psychiatric Psychiatric: Denies anxiety, depression, suicidal ideation or suicidal thoughts Endocrine Endocrinology: Denies polydipsia, polyphagia or polyuria Allergic/Immunologic Allergic/Immunologic ED: Denies mouth swelling, tongue swelling or urticaria EXAM Physical Exam Const Vital Signs: 03/29/22 15:38 03/29/22 16:16 03/29/22 17:09 Temperature 98.1 F Temperature Source Temporal Pulse Rate 76 77 Respiratory Rate 14 18 Respiratory Effort Normal Respiratory Depth Normal Respiratory Pattern Normal Blood Pressure 141/53 H 150/68 H Blood Pressure Mean 82 95 Pulse Ox 94 94 Oxygen Delivery Method Room Air Room Air Room Air Positive well nourished and well developed General Appearance ED: well developed HEENT Reports normocephalic and moist mucous membranes HEENT Narrative: There is a 2 cm linear scalp laceration in the left parietal scalp. Mild venous bleeding. No bony depressions. Eyes PERRL and EOMs intact bilaterally Neck no lymphadenopathy, supple and no JVD Resp normal respiratory effort and clear to auscultation bilaterally Cardio regular rate, regular rhythm and no murmurs GI normal to inspection, nondistended, normoactive bowel sounds and non-tender Palpation: soft Back/Spine no CVA tenderness and normal ROM Extremity Extremity Narrative: Tenderness palpation of the mid to proximal left humerus. Neurovascular intact distal General Extremety ED: Negative for edema General Extremity: Negative for edema Neuro oriented x3 and CN's II-XII intact bilaterally Neuro Narrative: GCS 15 Sensorium / Orientation: alert Motor Exam: strength 5/5 throughout Psych mental status grossly normal Mood & Affect: Negative for depressed or tearful Skin no rashes or lesions noted and no wounds MDM MDM MDM Narrative Medical decision making narrative: 1% lidocaine was instilled into the wound. It was washed with Shur-Clens and explored. It was closed using a total of 3 simple interrupted 4-0 Ethilon sutures. Wound care discussed with patient stitches will need to be removed in [address] the brain shows subarachnoid hemorrhage. CT of the cervical spine was negative for fracture. My interpretation of the x-ray of the humerus is no acute fracture. Patient was updated. We had shared decision-making that we would transfer her to [facility] where she has been accepted to the emergency room. Lab Data Attestation: I reviewed the patient's lab results. Labs: Laboratory Results - last 24 hr 03/29/22 03/29/22 03/29/22 16:50 16:50 16:50 WBC 8.9 RBC 4.54 Hgb 12.8 Hct 40.0 MCV 88.1 MCH 28.2 MCHC 32.0 RDW Std Deviation 46.5 H RDW Coeff of Yohan 14.5 Plt Count 211 MPV 10.7 Immature Gran % (Auto) 0.500 Neut % (Auto) 78.0 H Lymph % (Auto) 14.0 L [place] % (Auto) 6.0 Eos % (Auto) 1.0 Baso % (Auto) 0.5 Absolute Neuts (auto) 6.9 Absolute Lymphs (auto) 1.24 Nucleated RBC % 0 PT 13.5 INR 1.1 APTT 28.3 Sodium 140 Potassium 4.1 Chloride 107 Carbon Dioxide 26.0 Anion Gap 7 BUN 29 H Creatinine 0.97 Estim Creat Clear Calc 51.26 Est GFR (MDRD) Af Amer 74 Est GFR (MDRD) Non-Af 61 BUN/Creatinine Ratio 29.8 H Glucose 112 H Calcium 10.1 Total Bilirubin 1.00 AST 46 H ALT 53 Alkaline Phosphatase 64 Total Protein 7.8 Albumin 4.4 Globulin 3.4 Albumin/Globulin Ratio 1.3 Radiography Diagnostic Testing: Clinical Impression(s) from Imaging Studies Brain CT 03/29/22 16:20 IMPRESSION: Acute subarachnoid hemorrhage as described above. Electronically Signed: Wilfredo Puckett MD at 16:57 EDT , ADDENDUM: 03/29/22 1709 IMPRESSION: Acute subarachnoid hemorrhage as described above. N.B. : The above Results were Read Back by Wilfredo Puckett MD to Robbin Lopez MD, and understanding confirmed on 03/29/2022 17:02:06 (ET). Electronically Signed: Wilfredo Puckett MD at 16:57 EDT , Humerus X-Ray 03/29/22 16:25 IMPRESSION: Normal x-ray examination of the humerus. Electronically Signed: Wilfredo Puckett MD at 17:05 EDT , Cervical Spine CT 03/29/22 16:38 IMPRESSION: No acute fracture or subluxation. Electronically Signed: Wilfredo Puckett MD at 17:18 EDT , Critical Care Time Critical Care Time: Yes Critical care time (excluding procedures): 30-74 minutes (35 min), Including time spent:, Discussing w/Patient &/or Family/[facility], Discussing w/Consultants, Arranging Admission or Transfer and Performing Direct Patient Care at Bedside Discharge Plan Triage Chief Complaint: Head Injury ED Provider: Robbin Lopez Dx/Rx/DC Orders Clinical Impression: Laceration of scalp, Fall, Concussion, Subarachnoid hemorrhage, Contusion of arm, left Prescriptions: No Action atorvastatin 20 MG tablet 20 mg PO DAILY lisinopril 20 MG tablet 40 mg PO DAILY metformin 1,000 MG tablet 1,000 mg PO BID hydrochlorothiazide 12.5 mg capsule 12.5 mg PO DAILY trazodone 50 mg Tablet 50 mg PO DAILY aspirin [Aspir-81] 81 mg Tablet,Delayed Release (Dr/Ec) 81 mg PO DAILY Humulin 70/30 Insulin Pen 100 unit/mL (70-30) Insulin Pen 36 unit SUBCUT BID Primary Care Provider: Sun Morrell Referrals: Sun Morrell MD [Primary Care Provider] - Disposition Disposition: Acute Care Hospital Discharge Location: [facility]
--- NOTE | 2022-03-29 16:25 | RAD_ITS ---
STUDY: X-RAY - LEFT HUMERUS REASON FOR EXAM: Female, 61 years old. injury TECHNIQUE: 2 view(s) of the humerus. COMPARISON: None. FINDINGS: Normal visualized humerus. There is no demonstrated fracture or osseous destructive process. There is no demonstrated soft tissue abnormality. RAD/Humerus min 2 Views IMPRESSION: Normal x-ray examination of the humerus. Electronically Signed: Wilfredo Puckett MD at 17:05 EDT ,
--- NOTE | 2022-03-29 16:38 | CT_ITS ---
STUDY: CT CERVICAL SPINE WITHOUT CONTRAST REASON FOR EXAM: Female, 61 years old. trauma, neck pain RADIATION DOSAGE (If Supplied By Facility): CTDIvol = ( 21.54 ) mGy, DLP = ( 526.02 ) mGycm TECHNIQUE: High resolution transaxial imaging was performed without contrast material. Sagittal and coronal images were reconstructed. Individualized dose optimization techniques were used for this CT. COMPARISON: None FINDINGS: Normal craniovertebral junction. There are degenerative changes of the anterior atlantoaxial articulation. Normal odontoid process. Normal cervical lordosis. Normal vertebral bodies and posterior osseous elements. C2-3: Normal endplates. Normal disc height and morphology. Normal central canal and intervertebral neuroforamina. C3-4: Mild bilobed disc osteophyte complex and bilateral vertebral hypertrophy produces mild spinal stenosis and mild bilateral neural foraminal stenosis. C4-5: Moderate broad disc osteophyte complex and bilateral adrenal hypertrophy produces moderate spinal stenosis and moderate bilateral neural foraminal stenosis. C5-6: Normal endplates. Normal disc height and morphology. Normal central canal and intervertebral neuroforamina. C6-7: Normal endplates. Normal disc height and morphology. Normal central canal and intervertebral neuroforamina. C7-T1: Normal endplates. Normal disc height and morphology. Normal central canal and intervertebral neuroforamina. Normal visualized soft tissue structures. CT/Spine Cervical without Contras IMPRESSION: No acute fracture or subluxation. Electronically Signed: Wilfredo Puckett MD at 17:18 EDT ,
[2022-03-29 16:59] LABS: Absolute Lymphocyte Count 1.24 X10^3/uL (0.83-4.51); Absolute Neutrophil Count 6.9 X10^3/uL (2.0-7.7); Basophil# 0.04 X10^3/uL; Basophil% 0.5 % (0-1); Eosinophil# 0.09 X10^3/uL; Hemoglobin 12.8 g/dL (12.0-15.0); Lymphocyte # 1.24 X10^3/ul (0.83-4.51); Mean Corpuscular Hgb 28.2 pg (27.0-32.0); Mean Corpuscular Volume 88.1 fL (81-99); Mean Platelet Vol. 10.7 fl (6.2-12.0); Monocyte# 0.53 X10^3/uL; NRBC Flagged by Analyzer 0 % (0-5); Neutrophil # 6.92 X10^3/uL (2.7-7.7); Platelet Count 211 K/mm3 (150-450); RBC Distribution Width CV 14.5 % (11.6-14.6); RBC Distribution Width SD 46.5 fl (35.1-43.9); Red Blood Count 4.54 M/mm3 (4.2-5.4); White Blood Count 8.9 K/mm3 (4.4-11.0)
[2022-03-29 17:07] LABS: International Normalized Ratio 1.1; Prothrombin Time (Protime)PT. 13.5 SECONDS (11.7-14.9)
[2022-03-29 17:08] LABS: Partial Thromboplast Time 28.3 Seconds (24.1-36.2)
[2022-03-29 17:09] VITALS: BP 150/68; PULSE 77; RESP 18; O2SAT 94
[2022-03-29 17:16] LABS: ALB/GLOB Ratio 1.3 RATIO (0.9-2.4); AST(SGOT) 46 U/L (15-37); Alanine Aminotransfer ALT/SGPT 53 U/L (13-56); Albumin, Serum 4.4 g/dL (3.2-5.0); Alkaline Phosphatase 64 U/L (45-117); Anion Gap 7 (5-15); BUN 29 mg/dL (7-18); BUN/Creat Ratio 29.8 RATIO (10-20); Calcium,Total 10.1 mg/dL (8.5-10.1); Chloride 107 mmol/L (98-107); Creatinine, Serum 0.97 mg/dL (0.55-1.02); EST Glomerular Filtration Rate 61 mL/min (>60); Est Glom Filt Rate - Afr Amer 74 mL/min (>60); Estimated Creatinine Clearance 51.26 ml/min; Globulin 3.4 g/dL (2.2-4.2); Glucose 112 mg/dL (74-106); Potassium 4.1 mmol/L (3.5-5.1); Protein, Total 7.8 g/dL (6.4-8.2); Sodium Level 140 mmol/L (136-145)
--- NOTE | 2022-03-29 17:17 | NURSING ---
CALLED [facility], ETA IS 20 MIN
[2022-03-29 17:22] VITALS: BP 143/66; PULSE 78; PULSE 79; RESP 18; TEMP 36.7; O2SAT 95
== END 2022-03-29 17:47 | disposition short-term general hospital (02) ==
PROVIDERS: Emergency Provider Emergency Medicine; PCP Internal Medicine; Visit Provider Emergency Medicine
DX: S01.01XA Laceration without foreign body of scalp, initial encounter (principal); Z79.4 Long term (current) use of insulin; S06.6X9A Traumatic subarachnoid hemorrhage with loss of consciousness of unspecified duration, initial encounter; W19.XXXA Unspecified fall, initial encounter; F41.9 Anxiety disorder, unspecified; F32.A Depression, unspecified; I10 Essential (primary) hypertension; E66.9 Obesity, unspecified; Z79.899 Other long term (current) drug therapy; Z79.82 Long term (current) use of aspirin; S40.022A Contusion of left upper arm, initial encounter; Z68.36 Body mass index [BMI] 36.0-36.9, adult
CPT/HCPCS: 12001; 70450; 72125; 73060; 80053; 85025; 85610; 85730; 99285; A4216

== ENCOUNTER → 2023-02-02 | Outpatient (CLI) | payer OTHER, SELFPAY ==
[2023-02-02 10:00] LABS: Hematocrit 38.8 % (37-47); Hemoglobin 12.4 g/dL (12.0-15.0); Mean Corpuscular Hgb 28.6 pg (27.0-32.0); Mean Corpuscular Volume 89.6 fL (81-99); Mean Platelet Vol. 11.2 fl (6.2-12.0); Platelet Count 179 K/mm3 (150-450); RBC Distribution Width CV 14.7 % (11.6-14.6); RBC Distribution Width SD 48.2 fl (35.1-43.9); Red Blood Count 4.33 M/mm3 (4.2-5.4); White Blood Count 6.2 K/mm3 (4.4-11.0)
[2023-02-02 10:23] LABS: Microalbumin,Random Urine 6.3 mg/L (NO RANGE EST.); Microalbumin:Creatinine Ratio 8.3 mg/g CRE (<30 mg/g CRE)
[2023-02-02 10:29] LABS: Hemoglobin A1c 7.3 % (3.8-5.6)
[2023-02-02 10:37] LABS: Anion Gap 3 (5-15); BUN 20 mg/dL (7-18); BUN/Creat Ratio 24.3 RATIO (10-20); Calcium,Total 9.2 mg/dL (8.5-10.1); Chloride 106 mmol/L (98-107); Cholesterol 137 mg/dL (200); Creatinine, Serum 0.82 mg/dL (0.55-1.02); EST Glomerular Filtration Rate 74 mL/min (>60); Est Glom Filt Rate - Afr Amer 90 mL/min (>60); Glucose 166 mg/dL (74-106); High Density Lipoprotein 62 mg/dL; Potassium 4.1 mmol/L (3.5-5.1); Sodium Level 138 mmol/L (136-145); Triglycerides 74 mg/dL; Very Low Density Lipoprotein 15 mg/dL (5-40)
== END | disposition home or self-care (01) ==
LOC: LAB 08:24
PROVIDERS: PCP Internal Medicine; Referring Provider Internal Medicine; Visit Provider Internal Medicine
DX: E11.10 Type 2 diabetes mellitus with ketoacidosis without coma (principal); E78.5 Hyperlipidemia, unspecified
CPT/HCPCS: 36415; 80048; 80061; 82043; 82570; 83036; 85027

== ENCOUNTER 2024-01-31 17:30 | Outpatient (RCR) | payer SELFPAY | END 2024-02-05 23:59 | LOC: NS 17:30 | PROVIDERS: PCP Internal Medicine | DX: Z71.3 Dietary counseling and surveillance (principal) ==

== ENCOUNTER → 2024-04-22 | Outpatient (CLI) | payer OTHER, SELFPAY ==
[2024-04-22 11:24] LABS: ALB/GLOB Ratio 1.2 RATIO (0.9-2.4); AST(SGOT) 36 U/L (15-37); Alanine Aminotransfer ALT/SGPT 43 U/L (13-56); Albumin, Serum 3.8 g/dL (3.2-5.0); Alkaline Phosphatase 58 U/L (45-117); Anion Gap 5 (5-15); BUN 18 mg/dL (7-18); BUN/Creat Ratio 22.5 RATIO (10-20); Chloride 107 mmol/L (98-107); Cholesterol 132 mg/dL (200); EST Glomerular Filtration Rate 76 mL/min (>60); Est Glom Filt Rate - Afr Amer 92 mL/min (>60); Globulin 3.2 g/dL (2.2-4.2); Glucose 148 mg/dL (74-106); High Density Lipoprotein 57 mg/dL; Potassium 4.2 mmol/L (3.5-5.1); Sodium Level 138 mmol/L (136-145); Thyroid Stim Hormone (TSH) 2.25 uIU/mL (0.358-3.74); Triglycerides 98 mg/dL; Very Low Density Lipoprotein 20 mg/dL (5-40)
== END | disposition home or self-care (01) ==
LOC: LAB 09:33
PROVIDERS: PCP Internal Medicine; Referring Provider Nurse Practitioner Family; Visit Provider Nurse Practitioner Family
DX: E11.65 Type 2 diabetes mellitus with hyperglycemia (principal); E66.01 Morbid (severe) obesity due to excess calories; Z79.4 Long term (current) use of insulin; Z68.37 Body mass index [BMI] 37.0-37.9, adult; I10 Essential (primary) hypertension
CPT/HCPCS: 36415; 80053; 80061; 82043; 82570; 84443

== ENCOUNTER → 2025-02-19 | Outpatient (CLI) | payer SELFPAY, OTHER | END | disposition home or self-care (01) | LOC: SL 10:06 | PROVIDERS: PCP Internal Medicine; Referring Provider Internal Medicine; Visit Provider Internal Medicine | DX: G47.10 Hypersomnia, unspecified (principal) | CPT/HCPCS: 95806 ==

== ENCOUNTER → 2025-03-19 | Outpatient (CLI) | payer OTHER, SELFPAY ==
[2025-03-19 10:07] LABS: Absolute Lymphocyte Count 1.35 X10^3/uL (0.83-4.51); Absolute Neutrophil Count 3.7 X10^3/uL (2.0-7.7); Basophil# 0.03 X10^3/uL; Basophil% 0.5 % (0-1); Eosinophils% 1.8 % (0-5); Hematocrit 36.8 % (37-47); Hemoglobin 12.3 g/dL (12.0-15.0); Lymphocyte # 1.35 X10^3/ul (0.83-4.51); Lymphocyte % 23.9 % (19-41); Mean Corp Hgb Conc 33.4 g/dL (32-36); Mean Corpuscular Hgb 29.9 pg (27.0-32.0); Mean Corpuscular Volume 89.5 fL (81-99); Mean Platelet Vol. 10.8 fl (6.2-12.0); Monocyte# 0.41 X10^3/uL; Monocyte% 7.3 % (0-10); NRBC Flagged by Analyzer 0 % (0-5); Neutrophil # 3.73 X10^3/uL (2.7-7.7); Neutrophil % 66.1 % (47-70); Platelet Count 163 K/mm3 (150-450); RBC Distribution Width CV 13.8 % (11.6-14.6); RBC Distribution Width SD 44.9 fl (35.1-43.9); Red Blood Count 4.11 M/mm3 (4.2-5.4); White Blood Count 5.6 K/mm3 (4.4-11.0)
[2025-03-19 10:47] LABS: Microalbumin,Random Urine < 12.0 mg/L (NO RANGE EST.); Microalbumin:Creatinine Ratio UNABLE TO CALCULATE mg/g CRE
[2025-03-19 10:55] LABS: ALB/GLOB Ratio 1.7 RATIO (0.9-2.4); AST(SGOT) 41 U/L (<=31); Alanine Aminotransfer ALT/SGPT 32 U/L (<=34); Albumin, Serum 4.4 g/dL (3.4-4.8); Alkaline Phosphatase 54 U/L (35-104); Anion Gap 12 (5-15); BUN 18 mg/dL (4-19); Calcium,Total 9.6 mg/dL (7.6-11.0); Carbon Dioxide 24.8 mmol/L (21.0-32.0); Chloride 103 mmol/L (98-108); Cholesterol 162 mg/dL (<=200); Creatinine, Serum 0.83 mg/dL (0.70-1.20); EST Glomerular Filtration Rate 77 (>60); Globulin 2.6 g/dL (2.2-4.2); Glucose 169 mg/dL (70-99); High Density Lipoprotein 55 mg/dL; Low Density Lipoprotein Calc. 83 mg/dL; Potassium 4.5 mmol/L (3.3-5.1); Sodium Level 140 mmol/L (133-145); Triglycerides 118 mg/dL; Very Low Density Lipoprotein 24 mg/dL (5-40); cholesterol:hdl ratio screen 2.93
[2025-03-19 11:00] LABS: Vitamin D,25 Hydroxy 27.1 ng/mL (30-100)
== END | disposition home or self-care (01) ==
LOC: LAB 08:59
PROVIDERS: PCP Internal Medicine; Referring Provider Nurse Practitioner Family; Visit Provider Nurse Practitioner Family
DX: F41.9 Anxiety disorder, unspecified (principal); E11.65 Type 2 diabetes mellitus with hyperglycemia; Z79.4 Long term (current) use of insulin; F32.A Depression, unspecified; I10 Essential (primary) hypertension
CPT/HCPCS: 36415; 80053; 80061; 82043; 82306; 82570; 84443; 85025

== ENCOUNTER → 2025-09-10 | Outpatient (CLI) | payer OTHER, SELFPAY ==
--- NOTE | 2025-09-10 08:53 | RAD_ITS ---
PROCEDURE: ESOPHAGUS DUAL CONTRAST 09/10/2025 REASON FOR EXAM: DYSPHAGIA TECHNIQUE: ESOPHAGUS DUAL CONTRAST FLUOROSCOPIC TIME: 41 seconds. Radiation dose: 36 mGy FLUOROGRAPHIC IMAGES: 18 COMPARISON: None FINDINGS: The patient ingested barium. Fluoroscopic imaging of the esophagus was obtained. No evidence of esophageal obstruction. No evidence of gastroesophageal reflux. The patient ingested a 12 mm tablet the barium without any difficulty. RAD/Esophagus Dual Contrast IMPRESSION: Unremarkable air-contrast esophagram barium swallow. Reading Location: [facility]
== END | disposition home or self-care (01) ==
LOC: RAD 08:46
PROVIDERS: PCP Internal Medicine; Referring Provider Otolaryngology; Visit Provider Otolaryngology
DX: R13.10 Dysphagia, unspecified (principal)
CPT/HCPCS: 74221